=== PATIENT | male | born 1995 | race Hispanic/Latino ===

== ENCOUNTER 2024-05-24 17:44 | Emergency (ER) | payer SELFPAY ==
[~2024-05-24] VITALS: Ht 172.7 cm; Wt 82.6 kg
[2024-05-24] MEDS: 0.9%NACL 1000ML 1,000 ML IV ONE (17:57)
[2024-05-24] MEDS: leveTIRACEtam 500 MG/5 ML SD VIAL IV SCH (17:57)
[2024-05-24] MEDS: leveTIRACEtam 500 MG/5 ML SD VIAL IV ONE (17:58)
--- NOTE | 2024-05-24 18:10 | NUR ---
GIVEN URINAL. MADE AWARE OF UA ORDER. SEIZURE PRECAUTIONS INITIATED.
--- NOTE | 2024-05-24 18:12 | EKG ---
[facility] Test Date: 2024-05-24 Test Time: 18:10:39 Pat Name: MICHELLE AL Department: ED Room: Gender: Skip Tracer: [facility] : 1995 Requested By: DAVID CAMACHO Order Number: [id number] Reading MD: Jeny Villalpando Measurements Intervals [place] Rate: 84 P: 46 MI: 154 QRS: 24 QRSD: 80 T: 37 QT: 354 QTc: 418 Interpretive Statements Sinus rhythm No previous ECG available for comparison Electronically Signed On 05-25-2024 08:17:46 HAND [employer]UMENT [employer] by Jeny Villalpando Please click the below link to view image of tracing.
[2024-05-24 18:38] LABS: BASOPHILS # (AUTO) 0.04 K/uL (0.00-0.20); BASOPHILS % (AUTO) 0.3 % (0.0-5.0); EOSINOPHILS # (AUTO) 0.02 K/uL (0.00-0.70); EOSINOPHILS % (AUTO) 0.2 % (0.0-8.0); HEMATOCRIT 46.2 % (42-54); IMMATURE GRANULOCYTE ABSOLUTE 0.13 K/uL (0-1); LYMPHOCYTES # (AUTO) 1.6 K/uL (1.0-4.8); LYMPHOCYTES % (AUTO) 12.1 % (21.0-51.0); MEAN CORPUSCULAR HEMOGLOBIN 31.7 pg (27.0-33.0); MEAN CORPUSCULAR HGB CONC 35.1 g/dL (32.0-36.0); MEAN CORPUSCULAR VOLUME 90.4 fL (79-99); MONOCYTES # (AUTO) 0.9 K/uL (0.1-1.0); MONOCYTES % (AUTO) 6.9 % (3.0-13.0); NEUTROPHILS # (AUTO) 10.4 K/uL (1.8-7.7); NEUTROPHILS % (AUTO) 79.5 % (40.0-77.0); PLATELET COUNT (AUTO) 186 K/uL (130-400); RED BLOOD CELL COUNT(AUTO) 5.11 MIL/uL (4.50-6.20); WHITE BLOOD COUNT (AUTO) 13.1 K/uL (4.8-10.8)
--- NOTE | 2024-05-24 18:55 | HMCIMG ---
CT HEAD/BRAIN W/O CONTRAST HISTORY: Seizures COMPARISON: None TECHNIQUE: Multiple sequential axial images of the head were obtained from the base of the skull through vertex. Patient was not given contrast through intravenous route. FINDINGS: The ventricles and extraventricular CSF spaces are nondilated for patient's age. There is no midline shift, mass effect or herniation. No acute intracranial bleed is seen. Visualized portion of the paranasal sinuses are grossly within normal limits. IMPRESSION: 1. No acute intracranial bleed is seen. CT was performed with one or more following dose reduction techniques: automated exposure control, adjustment of the mA and kv according to patient's size, or use of a iterative reconstruction technique.
[2024-05-24 19:05] LABS: CREATININE 0.9 mg/dL (0.5-1.3); POTASSIUM 3.6 mmol/L (3.5-5.1)
[2024-05-24 19:10] LABS: MAGNESIUM 1.9 mg/dL (1.80-2.40)
[2024-05-24 19:11] LABS: APPEARANCE,URINE CLEAR (CLEAR); BILIRUBIN,URINE NEGATIVE (NEGATIVE); GLUCOSE, URINE (UA) NEGATIVE (NEGATIVE); KETONES,URINE 5 mg/dL (NEGATIVE); LEUKOCYTE ESTERASE ,URINE NEGATIVE Leu/uL (NEGATIVE); NITRATE,URINE NEGATIVE (NEGATIVE); PH,URINE 5.5 (5.0-8.0); PROTEIN,URINE 30 mg/dL (NEGATIVE); UROBILINOGEN,URINE 0.2 mg/dL (0.2-1.0)
[2024-05-24 19:13] LABS: ADD UA MICROSCOPIC YES; COLOR,URINE LIGHT-YELLOW (YELLOW)
[2024-05-24 19:14] LABS: BACTERIA,URINE RARE /HPF (None Seen); MUCUS,URINE RARE LPF (None Seen); RBC,URINE 0-1 /HPF (0-1); SQUAMOUS EPITHELIAL CELL,UR RARE /HPF (0-2); WBC,URINE 0-1 /HPF (0-1)
[2024-05-24 19:19] LABS: AMPHET/METH SCREEN,URINE NEGATIVE (NEGATIVE); BARBITURATE SCREEN, URINE NEGATIVE (NEGATIVE); BENZODIAZEPINES SCREEN,URINE NEGATIVE (NEGATIVE); CANNABINOID SCREEN,URINE POSITIVE (NEGATIVE); COCAINE SCREEN,URINE NEGATIVE (NEGATIVE); OPIATE SCREEN,URINE NEGATIVE (NEGATIVE); PHENCYCLIDINE SCREEN,URINE NEGATIVE (NEGATIVE)
[2024-05-24 19:25] VITALS: BP 118/74; PULSE 75; RESP 18; TEMP 98.4; O2SAT 98
--- NOTE | 2024-05-24 19:26 | NUR ---
SEIZURE PRECAUTTIONS IN PLACE.
--- NOTE | 2024-05-24 20:07 | ERN ---
General Chief Complaint: Seizure Stated Complaint: SEIZURE Time Seen by MD: 17:48 Time Seen by Midlevel: 17:48 Source: patient History of Present Illness Initial Comments Patient is a 21-year-old male with a past medical history of epilepsy on "sertraline" presenting to the emergency department for an alleged seizure that occurred prior to arrival. According to bystanders on scene the seizure lasted approximately 5 minutes. On arrival patient was awake and alert and has no complaints. Past Medical History Past Medical History: Seizure Past Surgical History: Cholecystectomy ROS Dictation CONSTITUTIONAL: Negative except for HPI HEAD/FACE: Negative except for HPI EENT: Negative except for HPI RESPIRATORY: Negative except for HPI GASTROINTESTINAL/ABDOMINAL: Negative except for HPI GENITOURINARY: Negative except for HPI MUSCULOSKELETAL: Negative except for HPI INTEGUMENTARY: Negative except for HPI NEUROLOGICAL/PSYCH: Negative except for HPI HEMATOLOGIC/LYMPHATIC: Negative except for HPI All Systems Negative, Except as noted above. 13 point review of systems assessed and all negative except for above. Physical Exam Physical Exam Dictation Vital Signs reviewed General Appearance: Alert, oriented x 3, no acute distress, well developed, nourished. Head and Face: non-traumatic. Eyes: PERRL, pink conjunctivas, eyelid no trauma, anterior chamber with arcus senilis. Ears: Pinnas intact and no signs of trauma or erythema ear canals clear and no discharge TM no erythema Nose: No discharge, no bleeding. Oropharynx: Mouth normal, tongue pink, pharynx clear,no erythema, tonsils no exudates, no abscesses noted, mucous membrane moist Neck: Supple, non-tender, no thyromegaly, no masses, no JVD, no bruits Breast:Deferred Chest:No tenderness, no crepitus, no paradoxical movement, no retractions Lungs:Clear, well-ventilated, symmetric, no rales, no wheezing, no rhonchi, no stridor, good breath sounds bilaterally Heart: Regular rate, regular rhythm, no murmur, no gallops Vascular: no peripheral edema, Abdomen: Soft, positive bowel sounds, nondistended, no guarding, nontender, no rebound, no masses no hepatomegaly, no splenomegaly, no Santiago's sign, no hernias. Rectal: Deferred Genital: Deferred Neurological: Normal speech, motor function intact, sensory function intact Musculoskeletal: Neck nontender, full range of motion, back nontender, full range of motion, Extremities: nontender, full range of motion Skin: Color pink, dry, no turgor, no rash, no lacerations, no abrasions, no contusions. Lymphatic: Deferred Results Laboratory and Microbiology Lab and Micro Result Laboratory Tests Test 05/24/24 18:33 05/24/24 19:00 White Blood Count 13.1 K/uL (4.8-10.8) H Red Blood Count 5.11 MIL/uL (4.50-6.20) Hemoglobin 16.2 g/dL (14.0-18.0) Hematocrit 46.2 % (42-54) Mean Corpuscular Volume 90.4 fL (79-99) Mean Corpuscular Hemoglobin 31.7 pg (27.0-33.0) Mean Corpuscular Hemoglobin Concent 35.1 g/dL (32.0-36.0) Red Cell Distribution Width 13.0 % (11.0-15.5) Platelet Count 186 K/uL (130-400) Mean Platelet Volume 10.0 fL (7.5-10.5) Immature Granulocyte % (Auto) 1.0 % (0-1) Neutrophils (%) (Auto) 79.5 % (40.0-77.0) H Lymphocytes (%) (Auto) 12.1 % (21.0-51.0) L Monocytes (%) (Auto) 6.9 % (3.0-13.0) Eosinophils (%) (Auto) 0.2 % (0.0-8.0) Basophils (%) (Auto) 0.3 % (0.0-5.0) Neutrophils # (Auto) 10.4 K/uL (1.8-7.7) H Lymphocytes # (Auto) 1.6 K/uL (1.0-4.8) Monocytes # (Auto) 0.9 K/uL (0.1-1.0) Eosinophils # (Auto) 0.02 K/uL (0.00-0.70) Basophils # (Auto) 0.04 K/uL (0.00-0.20) Absolute Immature Granulocyte (auto 0.13 K/uL (0-1) Nucleated Red Blood Cells 0.0 % (0.0-0.19) Sodium Level 140 mmol/L (136-145) Potassium Level 3.6 mmol/L (3.5-5.1) Chloride Level 104 mmol/L (101-111) Carbon Dioxide Level 27 mmol/L (21-32) Blood Urea Nitrogen 5 mg/dL (7-18) L Creatinine 0.9 mg/dL (0.5-1.3) Glomerular Filtration Rate Calc 119 mL/min (>90) Random Glucose 149 mg/dL (70-105) H Total Calcium 7.8 mg/dL (8.5-10.1) L Magnesium Level 1.90 mg/dL (1.80-2.40) Total Creatine Kinase 76 U/L (21-232) Urine Color LIGHT-YELLOW (YELLOW) Urine Appearance CLEAR (CLEAR) Urine pH 5.5 (5.0-8.0) Urine Specific Rison 1.011 (1.001-1.031) Urine Protein 30 mg/dL (NEGATIVE) H Urine Glucose (UA) NEGATIVE mg/dL (NEGATIVE) Urine Ketones 5 mg/dL (NEGATIVE) H Urine Occult Blood +- (TRACE) (NEGATIVE) H Urine Nitrate NEGATIVE (NEGATIVE) Urine Bilirubin NEGATIVE mg/dL (NEGATIVE) Urine Urobilinogen 0.2 mg/dL (0.2-1.0) Urine Leukocyte Esterase NEGATIVE Stormy/uL Urine RBC 0-1 /HPF (0-1) Urine WBC 0-1 /HPF (0-1) Urine Squamous Epithelial Cells RARE /HPF (0-2) Urine Bacteria RARE /HPF (None Seen) Urine Opiates Screen NEGATIVE (NEGATIVE) Urine Barbiturates Screen NEGATIVE (NEGATIVE) Urine Phencyclidine Screen NEGATIVE (NEGATIVE) Urine Amphetamines Screen NEGATIVE (NEGATIVE) Urine Benzodiazepines Screen NEGATIVE (NEGATIVE) Urine Cocaine Screen NEGATIVE (NEGATIVE) Urine Marijuana (THC) Screen POSITIVE (NEGATIVE) H Labs Reviewed?: Yes MDM MDM: Differential diagnosis: Seizure, status epilepticus, dehydration, electrolyte abnormalities There are no social concerns with this patient. Prescription drug management Prescriptions will include: None Medical management and examination interpretation discussions were had by me with other qualified healthcare professionals as indicated for the patient's care. ED Course Orders Procedure Category Date Status Time 12 Lead Ekg Tracing- EKG 05/24/24 Resulted Technical 17:52 Cbc With Differential LAB 05/24/24 Complete 17:52 Basic Metabolic Panel LAB 05/24/24 Complete 17:52 Creatine Kinase, Total LAB 05/24/24 Complete 17:52 Magnesium LAB 05/24/24 Complete 17:52 Urinalysis Profile LAB 05/24/24 Complete 17:52 Drug Screen Urine LAB 05/24/24 Complete 17:52 Ct Head/Brain W/O CT 05/24/24 Resulted Contrast 17:52 Levetiracetam 500 PHA 05/24/24 Complete Mg/5 Ml Sd V (Keppra 5 18:00 0.9%Nacl 1000ml (Ns PHA 05/24/24 Complete 1000ml) 18:00 Levetiracetam 500 PHA 05/24/24 Complete Mg/5 Ml Sd V (Keppra 5 17:52 Current Medications Medications (Trade) Dose Ordered Sig/Maryam Route PRN Reason Start Time Stop Time Status Last Admin Dose Admin Levetiracetam (kepPRA 500 MG/5 ML SD VIAL) 500 mg STK-MED ONCE IV 05/24/24 17:52 05/24/24 17:53 DC Levetiracetam (kepPRA 500 MG/5 ML SD VIAL) 1,000 mg ONCE IV 05/24/24 18:00 05/24/24 20:20 DC 05/24/24 17:57 Sodium Chloride 1,000 ml @ 0 mls/hr ONCE ONCE IV 05/24/24 18:00 05/24/24 18:01 DC 05/24/24 17:57 Vital Signs Date Time Temp Pulse Resp B/P (MAP) Pulse Ox O2 Delivery O2 Flow Rate FiO2 05/24/24 19:25 98.4 75 18 118/74 98 Room Air* 0 21 05/24/24 18:06 98.1 93 16 138/92 99 Room Air* 0 21 05/24/24 17:48 113 12 133/77 96 Room Air 0 [place] [address] [address] IMAGING REPORT Signed PATIENT: MICHELLE AL MR#: [id number] : 1995 SEX: M AGE: 29 LOCATION: [facility] ORDER 52 STATUS: REG ER REPORT#: [id number] SERVICE 51 REASON: seizure ORDERING PHYSICIAN: DAVID CAMACHO PROCEDURE: HEAD WO - CT HEAD/BRAIN W/O CONTRAST CT HEAD/BRAIN W/O CONTRAST HISTORY: Seizures COMPARISON: None TECHNIQUE: Multiple sequential axial images of the head were obtained from the base of the skull through vertex. Patient was not given contrast through intravenous route. FINDINGS: The ventricles and extraventricular CSF spaces are nondilated for patient's age. There is no midline shift, mass effect or herniation. No acute intracranial bleed is seen. Visualized portion of the paranasal sinuses are grossly within normal limits. IMPRESSION: 1. No acute intracranial bleed is seen. CT was performed with one or more following dose reduction techniques: automated exposure control, adjustment of the mA and kv according to patient's size, or use of a iterative reconstruction technique. DICTATED BY: JACINTA JUARES MD DATE: 05/24/241850 ELECTRONICALLY SIGNED BY: JACINTA JUARES MD DATE: 05/24/241854 DX & DISP Disposition: Discharge Departure Impression: Primary Impression: Seizure Additional Impression: History of epilepsy Condition: Stable Additional Instructions: Your blood work is stable. Your CT scan does not show any acute abnormality. Follow up with your primary care doctor and neurologist as discussed. Return if you develop any new or worsening symptoms. Referrals: SELF,REFERRAL (PCP) Time of Disposition: 20:06 I have reviewed the case, and I agree with, Diagnosis and Plan I performed the substantive portion of the visit. I have reviewed and personally made and approve the management plan that is documented in the note by myself or the FELIPE. I acknowledge for responsibility for the patient's management plan. DAVID CAMACHO May 24, 2024 20:07
== END 2024-05-24 20:19 | disposition home or self-care (01) ==
LOC: EDH 17:44
DX: G40.909 Epilepsy, unspecified, not intractable, without status epilepticus (principal); Z90.49 Acquired absence of other specified parts of digestive tract
CPT/HCPCS: 99285; 96365; 70450; 82550; 83735; 80048; 80305; 85025; 36415; 93005; 81001; J1953